=== PATIENT | female | born 1995 | race Hispanic/Latino ===

== ENCOUNTER 2016-10-17 18:33 | Emergency (ER) | payer OTHER, SELFPAY ==
[~2016-10-17] VITALS: Ht 167.6 cm; Wt 91.2 kg
[~2016-10-17 18:33] MED LIST: AMIT25TA PO; PERCOCET PO; SING10TA32 PO; VITA50003 PO
[2016-10-17] MEDS ORDERED: ALBUTEROL 90 MCG/ACT 8GM HFA INHALER INH ONE (19:30)
[2016-10-17 19:50] LABS: BASO % 0.4 % (0.0-1.0); EOS % 0.6 % (0.0-3.0); LARGE UNSTAINED CELL # 0.2 K/mm3 (0.0-0.4); LARGE UNSTAINED CELL % 2.1 % (0.0-4.0); LYMPH # 2.1 K/mm3 (1.5-6.5); LYMPH % 29.9 % (24.0-44.0); MEAN CORPUSCULAR HEMOGLOBIN 25.5 pg (27.0-33.0); MEAN CORPUSCULAR HGB CONC 33.1 g/dl (32.0-36.5); MEAN CORPUSCULAR VOLUME 76.9 fl (80.0-96.0); MONO # 0.4 K/mm3 (0.0-0.8); MONO % 5.5 % (0.0-5.0); NEUTROPHILS # 4.4 K/mm3 (1.8-7.7); NEUTROPHILS % 61.5 % (36.0-66.0); PLATELET COUNT, AUTOMATED 288 k/mm3 (150-450); RED CELL DISTRIBUTION WIDTH 14.6 % (11.5-14.5); WHITE BLOOD COUNT 7.2 K/mm3 (4.0-10.0)
[2016-10-17 20:08] LABS: ANION GAP 7 MEQ/L (8-16); BLOOD UREA NITROGEN 17 MG/DL (7-18); CALCIUM LEVEL 8.6 MG/DL (8.5-10.1); CARBON DIOXIDE LEVEL 28 MEQ/L (21-32); CHLORIDE LEVEL 105 MEQ/L (98-107); CREATININE FOR GFR 0.76 MG/DL (0.55-1.02); GLUCOSE, FASTING 112 MG/DL (70-105); POTASSIUM SERUM 4.1 MEQ/L (3.5-5.1); SODIUM LEVEL 140 MEQ/L (136-145)
--- NOTE | 2016-10-17 20:20 | REPUSA ---
Clinical history: Pain, swelling. Findings: The right common femoral, superficial femoral, popliteal, and other deep venous structures compress normally and demonstrate normal color Doppler flow. Normal venous waveforms with augmentatio n are seen. Impression: No evidence of deep vein thrombosis in the right femoral popliteal venous system.
--- NOTE | 2016-10-17 21:02 | REP ---
CHEST, TWO VIEWS: HISTORY: Chest pain. COMPARISON: 03/21/2014 The lungs are clear. The heart is normal in size. The pulmonary vasculature is normal in ___ appearance. There is an old fracture of the distal right clavicle. IMPRESSION: No acute disease. Signed by Jose Daniel Redmond MD 10/18/2016 09:01 A
[2016-10-17] MEDS ORDERED: IBUPROFEN 800 MG TAB PO ONE (21:30)
[2016-10-17 21:54] VITALS: BP 145/83
[2016-10-17] MEDS ORDERED: NAPR500T2 PO (21:55)
[2016-10-17] MEDS ORDERED: ALBU17IN INH (21:57)
[2016-10-17] MEDS ORDERED: DOXYCYCLINE HYCLATE 100 MG TAB PO ONE (22:15)
--- NOTE | 2016-10-18 07:32 | ECGEPIP ---
Stationary ECG Study [facility] - ED Test Date: 2016-10-17 Pat Name: DINA VIZCARRA Department: Room: - Gender: F [employer]: fer : 1995 Requested By: JAN Kuhn Order Number: [id number] Reading MD: Anitha Storm Measurements Intervals [place] Rate: 88 P: 61 UT: 148 QRS: 39 QRSD: 75 T: -10 QT: 358 QTc: 434 Interpretive Statements SINUS RHYTHM NONSPECIFIC T-WAVE ABNORMALITY SIMILAR 07/26/11 Electronically Signed On 10-18-2016 7:31:43 EDT by Anitha Storm
== END 2016-10-17 22:12 | disposition home or self-care (01) ==
LOC: M ED 19:37
DX: R07.89 Other chest pain (principal); J45.909 Unspecified asthma, uncomplicated; S30.861A Insect bite (nonvenomous) of abdominal wall, initial encounter; W57.XXXA Bitten or stung by nonvenomous insect and other nonvenomous arthropods, initial encounter; Y92.89 Other specified places as the place of occurrence of the external cause; Y93.89 Activity, other specified; Y99.9 Unspecified external cause status

== ENCOUNTER 2016-12-05 22:15 | Emergency (ER) | payer OTHER ==
[~2016-12-05] VITALS: Ht 167.6 cm; Wt 91.8 kg
[2016-12-05 22:15] VITALS: BP 135/88
[~2016-12-05 22:15] MED LIST changes: +ALBU17IN INH; +NAPR500T3 PO; +VITA1CAP40 PO; -VITA50003 PO
== END 2016-12-06 01:11 | disposition left against medical advice (07) ==
LOC: M ED 22:15
DX: R51 Headache (principal); Z53.29 Procedure and treatment not carried out because of patient's decision for other reasons